=== PATIENT | male | born 1960 | race Caucasian/White ===

== ENCOUNTER 2020-04-28 21:03 | Inpatient (IN) | payer OTHER, MEDICAID ==
[~2020-04-28] VITALS: Ht 182.9 cm; Wt 152.9 kg
[~2020-04-28 21:03] MED LIST: ACETAMINOPHEN-1 EAC1 PO; ROBAXIN500 MG PO
[2020-04-28 21:18] VITALS: BP 159/71
[2020-04-28] MEDS ORDERED: CLARITIN10 MG PO (21:27)
[2020-04-28] MEDS ORDERED: ADVIL200 M3 PO (21:27)
[2020-04-28 23:14] LABS: HEMOGLOBIN 12.1 gm/dL (14.0-18.0); MCH 27.5 pg (26.0-34.0); MCHC 32.6 g/dL (28.0-37.0); MCV 84.3 fL (80.0-100.0); MPV 8.4 fl. (7.2-11.1); NUCLEATED RBCS 0 /100WBC; PLATELET COUNT* 382 thou/uL (150-400); RBC 4.39 mil/uL (4.50-6.00); RDW-CV 14.1 % (10.5-14.5); WBC 9.3 thou/uL (4.0-11.0)
[2020-04-28 23:20] LABS: CALCIUM 8.1 mg/dL (8.5-10.1); CREATININE 0.9 mg/dL (0.6-1.3); POTASSIUM 3.8 mmol/L (3.5-5.1)
[2020-04-28 23:24] LABS: ALBUMIN 2.8 g/dL (3.4-5.0); TOTAL BILIRUBIN 0.3 mg/dL (<0.1-1.0); TOTAL PROTEIN 7.6 g/dL (6.4-8.2)
[2020-04-28 23:58] LABS: ABSOLUTE BASOPHILS 0.1 thou/uL (0.0-0.2); ABSOLUTE EOSINOPHILS 1.4 thou/uL (0.0-0.7); ABSOLUTE LYMPHOCYTES 1.3 thou/uL (0.8-5.3); ABSOLUTE MONOCYTES 0.8 thou/uL (0.0-1.2); ABSOLUTE NEUTROPHILS 5.7 thou/uL (1.6-8.1); PLATELET ESTIMATE ADEQUATE
[2020-04-29 02:08] VITALS: BP 146/80
--- NOTE | 2020-04-29 05:32 | NUR ---
PT ADMITTED TO 308 @ 0230. ALERT AND ORIENTED. ADM HX AND ASSESSMENT DOCUMENTED. PT ORIENTED TO RM AND CALL LIGHT. RASHES TO BODY. SKIN TOUGH TO TOUCH. PT IV TO LW INFILTRATED. NO IV AT THIS TIME. PT WILL BENEFIT FROM PICC, IT IS DIFFICULT TO DRAW LAB WORK. PT VOICED HE'S UNAWARE IF HE'S DIABETIC. PER REPORT FROM EER RN PT IS AN ACCU CHECK. PT ABLE TO AMBULATE INDEPENDENTLY. ENCOURAGED TO CALL WHEN NEEDING ASSISTANCE. CALL LIGHT WITHIN REACH. WILL CONTINUE TO MONITOR.
[2020-04-29 07:40] VITALS: BP 133/65
[2020-04-29 15:49] VITALS: BP 141/75
--- NOTE | 2020-04-29 16:28 | NUR ---
PATIENT UP AD ELLYN THIS SHIFT. MULT ATTEMPTS MADE TO PLACE IV WITH NO SUCCESS, DR. BA AWARE AND DOXYCYLCINE PO FOR TODAY. MESSAGE LEFT FOR RONNIE IN INFUSION FOR IV PLACEMENT FOR TOMORROW TO START IV DOXYCYCLINE. PATIENT AWARE OF PLAN OF CARE. NO COMPLAINTS OF PAIN. FLU VACCINE GIVEN PER PROTOCOL. MRSA NASAL SWAB SENT ORDERED.
[2020-04-29 20:00] VITALS: BP 137/64
[2020-04-30 04:10] LABS: ABSOLUTE BASOPHILS 0.2 thou/uL (0.0-0.2); ABSOLUTE EOSINOPHILS 1.5 thou/uL (0.0-0.7); ABSOLUTE LYMPHOCYTES 1.6 thou/uL (0.8-5.3); ABSOLUTE MONOCYTES 1.2 thou/uL (0.0-1.2); ABSOLUTE NEUTROPHILS 6.8 thou/uL (1.6-8.1); BASOPHILS 1.9 %; EOSINOPHILS 13.2 %; HEMATOCRIT 35.1 % (42.0-52.0); HEMOGLOBIN 11.6 gm/dL (14.0-18.0); LYMPHOCYTES 14.3 %; MCH 27.5 pg (26.0-34.0); MCV 83.4 fL (80.0-100.0); MONOCYTES 10.5 %; MPV 8.6 fl. (7.2-11.1); NUCLEATED RBCS 0 /100WBC; PLATELET COUNT* 401 thou/uL (150-400); POLYS 60.1 %; RBC 4.21 mil/uL (4.50-6.00); RDW-CV 14.1 % (10.5-14.5); WBC 11.3 thou/uL (4.0-11.0)
[2020-04-30 04:40] LABS: ALBUMIN 2.5 g/dL (3.4-5.0); CALCIUM 7.7 mg/dL (8.5-10.1); CREATININE 0.9 mg/dL (0.6-1.3); POTASSIUM 3.9 mmol/L (3.5-5.1); TOTAL BILIRUBIN 0.3 mg/dL (<0.1-1.0); TOTAL PROTEIN 6.9 g/dL (6.4-8.2)
[2020-04-30 05:06] LABS: GLYCOHEMOGLOBIN (HGB A1C) 7.7 % (4.8-5.6)
--- NOTE | 2020-04-30 05:28 | NUR ---
ASSUMED PT'S CARE @ 1900. ALERT AND ORIENTED. VSS ON RA. UP AD ELLYN. PT SLEPT WELL THIS SHIFT. MEDS GIVEN PER EMAR. NO IV ACCESS. RONNIE INFUSION AWARE AND TO PLACE AN IV TODAY PER REPORT BEGINNING OF SHIFT. PT VOICED NO HX OF DM KNOWN TO HIM PRIOR. PT'S Ha1c RESULTED TO 7.7. SCD TO LEFT FOOT. CALL LIGHT WITHIN REACH. HOURLY ROUNDINGS MADE. WILL CONTINUE TO MONITOR.
[2020-04-30 08:00] VITALS: BP 145/66
--- NOTE | 2020-04-30 13:44 | NUR ---
Pt is A&O. Resides at home alone. Independent. No DME. No hx of HH or SNF. Pt states that he hasn't been to the Dr in years and does not have a PCP, ESTELA to schedule an appt for Pt at dc at the [facility] in [place]. Pt has MO TY with a $727 spenddown per Med Assist. Pt will need Eliquis at ar, CM to provide Pt with Eliquis copay card. Anticipate dc to home tomorrow on po ABX. Following.
[2020-04-30 15:46] VITALS: BP 150/78
--- NOTE | 2020-04-30 17:57 | NUR ---
PATIENT ALERT AND ORIENTED X 4. VITAL SIGNS STABLE ON ROOM AIR. AFEBRILE. UP INDEPENDENTLY IN ROOM. IV PATENT AND SALINE LOCKED. ANTIBIOTICS GIVEN PER AUG. SCD IN PLACE TO LEFT LEG. DENIES PAIN AND NAUSEA AT THIS TIME. HOURLY ROUNDS MAINTAINED THROUGHOUT THE SHIFT. CALL LIGHT WITHIN REACH. NURSING WILL CONTINUE TO MONITOR.
[2020-04-30 20:00] VITALS: BP 161/77
[2020-05-01 04:14] LABS: HEMATOCRIT 35.3 % (42.0-52.0); HEMOGLOBIN 11.6 gm/dL (14.0-18.0); MCH 27.1 pg (26.0-34.0); MCHC 32.8 g/dL (28.0-37.0); MCV 82.5 fL (80.0-100.0); MPV 8.1 fl. (7.2-11.1); NUCLEATED RBCS 0 /100WBC; PLATELET COUNT* 391 thou/uL (150-400); RBC 4.27 mil/uL (4.50-6.00); RDW-CV 13.7 % (10.5-14.5); WBC 11.3 thou/uL (4.0-11.0)
[2020-05-01 04:29] LABS: CALCIUM 8.5 mg/dL (8.5-10.1); CREATININE 0.8 mg/dL (0.6-1.3); POTASSIUM 3.9 mmol/L (3.5-5.1)
[2020-05-01 05:31] LABS: ABSOLUTE EOSINOPHILS 1.2 thou/uL (0.0-0.7); ABSOLUTE LYMPHOCYTES 1.8 thou/uL (0.8-5.3); ABSOLUTE MONOCYTES 0.7 thou/uL (0.0-1.2); ABSOLUTE NEUTROPHILS 7.6 thou/uL (1.6-8.1); PLATELET ESTIMATE ADEQUATE
[2020-05-01 05:32] LABS: ANISOCYTOSIS 1+; POIKILOCYTOSIS 1+
--- NOTE | 2020-05-01 06:55 | NUR ---
PT SLEPT WELL OVERNIGH WITHOUT COMPLAINTS. LFA IV SL, ABX GIVEN ORDERED. L LEG SCD, RLE EDEMA. MRSA +, PLACED ON CONTACT ISOLATION AND EDUCATION GIVEN. UP TO BR TO VOID. ABLE TO USE CALL LITE AND MAKE NEEDS KNOWN.
[2020-05-01 07:30] VITALS: BP 160/76
[2020-05-01 11:46] VITALS: BP 160/76
--- NOTE | 2020-05-01 13:26 | NUR ---
Anticipate dc to home tomorrow. ETSELA made a PCP appt for Pt at [facility] for 05/07 at 130pm, Pt will need to arrive at 1pm and take his ID and insurance card. Pt will see Drea Bullard NP. ESTELA faxed medical records. CM to provide Pt with Eliquis card. Appt in Pt's dc summary. Pt remains on IVABX. [facility] p:[phone] f:[phone]
--- NOTE | 2020-05-01 15:56 | NUR ---
A&OX 4, PWD. LUNGS CLEAR, HEART TONES REGULAR, +BS X 4 QUADS. PEDAL PULSES PRESENT DAILY. RIGHT FOOT/LEG SWELLING NOTED 2+. SCD ONLY ON LEFT LEG PT HAS DVT IN RIGHT LEG. ON BLOOD THINNERS. HAS SCABBED LEISONS ON ABD. PT + FOR MRSA AND REMAINS ON ISOLATION. CALL LIGHT WITHIN REACH. SL LEFT FA INTACT AND PATENT. NO C/O PAIN. WILL CONTINUE TO MONITOR.
[2020-05-01 16:00] VITALS: BP 162/77
[2020-05-01 20:00] VITALS: BP 126/60
--- NOTE | 2020-05-02 05:23 | NUR ---
PT SLEPT WELL OVERNIGHT, UP AD ELLYN IN ROOM TO BATHROOM. PT STATES BM YESTERDAY. DENIES NEED FOR PAIN MEDICATION THIS SHIFT. RLE DVT, EDEMATOUS AND PINK. LLEG SCD OVERNIGHT PT WOULD ALLOW. IV INFILTRATED, NEW ORDER FOR PO DOXYCYCLINE. NO IV ACCESS. AM LABS. ANTICIPATING DISCHARGE HOME TODAY TO F/U IN [facility] NEXT WEEK. REMAINS ON CONTACT ISOLATION FOR MRSA NARES AND RASH. ABLE TO USE CALL LITE AND MAKE NEEDS KNOWN.
[2020-05-02 08:15] VITALS: BP 159/87
[2020-05-02 08:51] LABS: ABSOLUTE BASOPHILS 0.1 thou/uL (0.0-0.2); ABSOLUTE EOSINOPHILS 0.8 thou/uL (0.0-0.7); ABSOLUTE LYMPHOCYTES 1.6 thou/uL (0.8-5.3); ABSOLUTE MONOCYTES 1.1 thou/uL (0.0-1.2); ABSOLUTE NEUTROPHILS 9.9 thou/uL (1.6-8.1); BASOPHILS 0.9 %; EOSINOPHILS 5.7 %; HEMATOCRIT 36.5 % (42.0-52.0); LYMPHOCYTES 12.2 %; MCH 27.2 pg (26.0-34.0); MCHC 32.9 g/dL (28.0-37.0); MCV 82.7 fL (80.0-100.0); MPV 7.9 fl. (7.2-11.1); NUCLEATED RBCS 0 /100WBC; PLATELET COUNT* 418 thou/uL (150-400); POLYS 73.2 %; RBC 4.41 mil/uL (4.50-6.00); RDW-CV 13.8 % (10.5-14.5); WBC 13.6 thou/uL (4.0-11.0)
[2020-05-02 08:56] LABS: CALCIUM 8.5 mg/dL (8.5-10.1); CREATININE 0.7 mg/dL (0.6-1.3)
--- NOTE | 2020-05-02 12:33 | NUR ---
Pt dc home today, Eliquis samples given, along with a 30 day copay card. CM faxed dc orders to [facility]
[2020-05-02] MEDS ORDERED: MINOCYCLINE HC100 M2 PO (12:49)
[2020-05-02] MEDS ORDERED: ELIQUIS5 M1 PO (12:49)
[2020-05-02] MEDS ORDERED: ELIQUIS5 MG PO (12:49)
[2020-05-02] MEDS ORDERED: GLUCOPHAGE1000 MG PO (12:50)
[2020-05-02 13:46] VITALS: BP 159/87
--- NOTE | 2020-05-02 14:26 | NUR ---
WOUND NURSE: PATIENT SEEN TO ADDRESS RLE EXCORIATION WHICH IS THE RESSULT OF PATIENT SCRATCHING HIS LEG FROM ITCHING. THE LEG IS REDDENED WITH PARTIAL THICKNESS TISSUE LOSS, AND MODERATE AMOUNT OF CLEAR PINK DRAINAGE. CLEANSED WITH SOAP AND WATER, RINSED WITH WATER, THEN PATTED DRY. APPLIED MOISTURIZING LOTION TO INTACT SKIN TOES TO KNEE. APPLIED XEROFORM GAUZE UNDER ABD'S TO AREAS OF EXCORIATION. WRAPPED TOES TO KNEE WITH KERLEX ROLL GAUZE UNDER JESUS MANUEL WRAP. PATIENT WITH 3+ EDEMA AND REPORTED BURNING SENSATION DURING PROCEDURE, BUT SUBSIDED UPON COMPLETION. RECOMMENDED PATIENT TO FOLLOW UP WITH [facility]. HE AND HIS SON STATED THAT THEY ALREADY PLANNED ON GOING THERE ONCE THEY LEAVE HERE TODAY.
--- NOTE | 2020-05-02 15:31 | NUR ---
Pt remained A&O x4 for the day today. Pt seems more irritable today but still calm and cooperative. Pt did not eat breakfast because he said he was not hungry. Pt scratched the scabbing off of his leg and caused it to bleed. Wound care was consulted to come and dress the area. Pt is going home with eliquis, minocycline, and metformin. Case management set the pt up with resources to do so.
== END 2020-05-02 15:30 | disposition home or self-care (01) | DRG 300 ==
LOC: M.ERS 21:03 → M.TBA-ER 04-29 00:17 → M.3W 04-29 00:17 → M.ERS 04-29 02:10 → M.3W 04-29 02:30
PROVIDERS: Emergency Medicine; ADMIT Internal Medicine; ATTEND Internal Medicine
DX: I82.431 Acute embolism and thrombosis of right popliteal vein (principal); L03.115 Cellulitis of right lower limb; Z68.42 Body mass index [BMI] 45.0-49.9, adult; E66.01 Morbid (severe) obesity due to excess calories; L30.9 Dermatitis, unspecified; E11.65 Type 2 diabetes mellitus with hyperglycemia; R21 Rash and other nonspecific skin eruption; B95.62 Methicillin resistant Staphylococcus aureus infection as the cause of diseases classified elsewhere; Z90.49 Acquired absence of other specified parts of digestive tract; Z23 Encounter for immunization; Z79.899 Other long term (current) drug therapy